=== PATIENT | male | born 1950 | race Caucasian/White ===

== ENCOUNTER 2024-02-24 01:32 | Emergency (ER) | payer MEDICARE, OTHER ==
[2024-02-24 02:25] LABS: APPEARANCE,URINE CLEAR (CLEAR); BILIRUBIN,URINE NEGATIVE (NEGATIVE); COLOR,URINE YELLOW (YELLOW); GLUCOSE,URINE NEGATIVE (NEGATIVE); KETONES,URINE 15 mg/dL (NEGATIVE); LEUKOCYTE ESTERASE,URINE NEGATIVE (NEGATIVE); NITRITE,URINE NEGATIVE (NEGATIVE); OCCULT BLOOD,URINE NEGATIVE (NEGATIVE); PROTEIN,URINE NEGATIVE (NEGATIVE); UROBILINOGEN,URINE 0.2 EU/dL (0.2-1.0)
[2024-02-24 02:31] LABS: AMORPHOUS SEDIMENT,URINE NOT SEEN; BACTERIA,URINE FEW; EPITHELIAL CELLS,URINE RARE; MUCUS,URINE RARE; RBC,URINE NOT SEEN (0-5); WBC,URINE NOT SEEN (0-5)
[2024-02-24] MEDS: Acetaminophen 325 MG Tab PO ONE (03:05)
[2024-02-24 03:12] LABS: BASOPHILS ABSOLUTE AUTO 0.02 K/uL (0.00-0.10); BASOPHILS PERCENT AUTO 0.5 % (0.1-1.3); EOSINOPHILS ABSOLUTE AUTO 0.04 K/uL (0.00-0.40); EOSINOPHILS PERCENT AUTO 0.9 % (0.0-5.4); HEMATOCRIT 41.1 % (38.4-49.7); HEMOGLOBIN 14.5 g/dL (12.9-16.9); IMMATURE GRAN ABSOLUTE AUTO 0.02 K/uL (0.00-0.23); IMMATURE GRAN PERCENT AUTO 0.5 % (0.0-0.7); LYMPHOCYTES ABSOLUTE AUTO 0.46 K/uL (0.8-3.3); LYMPHOCYTES PERCENT AUTO 10.6 % (11.4-47.7); MEAN CORPUSCULAR HEMOGLOBIN 32.4 pg (31.6-35.5); MEAN CORPUSCULAR HGB CONC 35.3 g/dL (31.6-35.5); MEAN CORPUSCULAR VOLUME 91.7 fL (81.4-99.0); MONOCYTES ABSOLUTE AUTO 0.63 K/uL (0.20-0.90); MONOCYTES PERCENT AUTO 14.5 % (3.3-12.6); NEUTROPHILS ABSOLUTE AUTO 3.17 K/uL (1.0-7.6); PLATELET COUNT,PLT 121 K/uL (130-375); RED BLOOD CELL COUNT 4.48 M/uL (4.14-5.76); WHITE BLOOD CELL COUNT,WBC 4.3 K/uL (3.2-11.0)
[2024-02-24 03:28] LABS: CALCIUM 9.1 mg/dL (8.5-10.1); CREATININE 1.4 mg/dL (0.8-1.3); EST CRCL DRUG DOSING (CG) 50.8 mL/min; POTASSIUM,K 4.1 mmol/L (3.6-5.2)
[2024-02-24 03:35] LABS: ANION GAP 11.1 mmol/L (5.0-14.0)
[2024-02-24 03:38] LABS: LACTIC ACID 1.1 mmol/L (0.4-2.0)
[2024-02-24 04:03] LABS: LYME AB IgG Negative (Negative); LYME AB IgM Negative (Negative)
[2024-02-26 19:43] LABS: ANAPLASMA PHAGOCYTOPHILUM PCR Not Detected; BABESIA MICROTI BY PCR Not Detected; BABESIA SPECIES BY PCR Not Detected; EHRLICHIA CHAFFEENSIS BY PCR Not Detected; EHRLICHIA EWINGII/CANIS BY PCR Not Detected; EHRLICHIA MURIS-LIKE BY PCR Not Detected
== END 2024-02-24 04:34 | disposition home or self-care (01) ==
LOC: JP.ED 01:32
DX: S70.362A Insect bite (nonvenomous), left thigh, initial encounter (principal); U07.1 COVID-19; Z88.0 Allergy status to penicillin; Z79.899 Other long term (current) drug therapy; Z95.5 Presence of coronary angioplasty implant and graft; W57.XXXA Bitten or stung by nonvenomous insect and other nonvenomous arthropods, initial encounter
CPT/HCPCS: 36415; 71046; 80048; 81001; 83605; 85025; 86618; 87468; 87469; 87484; 87798; 99283; A9270; U0002